=== PATIENT | male | born 1990 | race Caucasian/White ===

== ENCOUNTER 2018-05-22 08:56 | Emergency (ER) ==
[2018-05-22 09:07] VITALS: BP 151/92; TEMP 97.1; BMI 48.8
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
== END 2018-05-22 11:03 | disposition home or self-care (01) ==
LOC: ED 08:56
DX: Z04.1 Encounter for examination and observation following transport accident (principal)
CPT/HCPCS: 36415; 80053; 81001; 84439; 84443; 85025; 93005; 93010; 99283